=== PATIENT | male | born 1960 | race Two or more races ===

== ENCOUNTER 2023-01-03 13:29 | Inpatient (IN) | payer OTHER ==
[~2023-01-03] VITALS: Ht 175.3 cm; Wt 94.3 kg
[2023-01-03] MEDS ORDERED: COZAAR100 MG (13:49)
[2023-01-03] MEDS ORDERED: CHLORTHALIDONE50 MG (13:50)
[2023-01-03] MEDS ORDERED: LIPITOR20 MG (13:50)
[2023-01-03] MEDS ORDERED: XARELTO10 MG (13:50)
[2023-01-03] MEDS ORDERED: AMLODIPINE-OLM1 EAC3 (13:51)
--- NOTE | 2023-01-03 13:51 | NUR ---
PACIENTE ALERTA Y ORIENTADO X [address] PICKETT Y DR CHÁVEZ LOS ENVIA A ER PARA QUE DR IDALIA CIFUENTES LO ADM.
--- NOTE | 2023-01-03 16:47 | NUR ---
MS POWERS ORIENTA PTE SOBRE TX MEDICO EL CUAL REFIERE ENTENDER.SE LE EXTRAEN MUESTRAS BAJO MEDIDAS ASEPTICAS,SE CANALIZA Y SE ADMINISTRAN MEDICAMENTOS EDIE ORDEN MEDICA.
== END 2023-01-07 16:47 | disposition home or self-care (01) | DRG 343 ==
LOC: ER 13:29 → SURH 17:25 → SURG 17:25 → SURH 19:27
PROVIDERS: Emergency Medicine; Surgery; ADMIT Specialist; ATTEND Specialist
PROC: 0DTJ4ZZ Resection of Appendix, Percutaneous Endoscopic Approach (ICD-10-PCS; principal; 2023-01-04 15:15)
DX: K35.31 Acute appendicitis with localized peritonitis and gangrene, without perforation (principal); E86.0 Dehydration; I11.9 Hypertensive heart disease without heart failure; Z79.01 Long term (current) use of anticoagulants